=== PATIENT | male | born 1985 | race Caucasian/White ===

== ENCOUNTER 2022-05-13 23:33 | Emergency (ER) | payer SELFPAY | END 2022-05-13 23:58 | disposition left against medical advice (07) | LOC: ED 23:33 | DX: S01.111A Laceration without foreign body of right eyelid and periocular area, initial encounter (principal); S01.511A Laceration without foreign body of lip, initial encounter; V89.2XXA Person injured in unspecified motor-vehicle accident, traffic, initial encounter; Y93.89 Activity, other specified; Y92.89 Other specified places as the place of occurrence of the external cause; Y99.8 Other external cause status ==